=== PATIENT | male | born 1975 | race Caucasian/White ===

== ENCOUNTER 2016-08-27 12:57 | Emergency (ER) | payer OTHER ==
[~2016-08-27] VITALS: Ht 172.7 cm; Wt 57.1 kg
[~2016-08-27 12:57] MED LIST: ABILIFY2 MG PO; ASPIR-LOW81 MG PO; AVENTYL,PAMELOR10 MG PO; DEPAKOTE500 MG PO; DOXYCYCLINE HY100 MG PO; HYCODAN SYRUP480 ML PO; MOTRIN600 MG PO; MOTRIN800 MG PO; NORCO 5/3251 TABLET PO; TESSALON PERLE100 MG PO; TYLENOL WITH C1 EACH PO; ULTRAM50 MG PO; VALIUM5 MG PO; ZITHROMAX Z-PA250 MG PO; ZITHROMAX500 MG PO
[2016-08-27 13:21] VITALS: BP 132/86
[2016-08-27] MEDS ORDERED: BENADRYL50 MG PO (14:27)
[2016-08-27] MEDS ORDERED: ACYCLOVIR800 MG PO (14:27)
== END 2016-08-27 15:30 | disposition home or self-care (01) ==
LOC: EME 12:57
DX: B02.9 Zoster without complications (principal); Z88.0 Allergy status to penicillin; Z88.8 Allergy status to other drugs, medicaments and biological substances
CPT/HCPCS: 99281; 99283

== ENCOUNTER 2016-11-01 03:34 | Emergency (ER) | payer SELFPAY ==
[~2016-11-01] VITALS: Ht 172.7 cm; Wt 56.6 kg
[~2016-11-01 03:34] MED LIST changes: +ACYCLOVIR800 MG PO; +BENADRYL50 MG PO
[2016-11-01 06:30] VITALS: BP 130/98
== END 2016-11-01 06:40 | disposition home or self-care (01) ==
LOC: EME 03:34
DX: T65.91XA Toxic effect of unspecified substance, accidental (unintentional), initial encounter (principal); T23.571A Corrosion of first degree of right wrist, initial encounter; S05.01XA Injury of conjunctiva and corneal abrasion without foreign body, right eye, initial encounter
CPT/HCPCS: 99281; 99283

== ENCOUNTER 2017-01-12 14:28 | Emergency (ER) | payer SELFPAY ==
[~2017-01-12] VITALS: Ht 172.7 cm; Wt 60.7 kg
[2017-01-12] MEDS ORDERED: NAPROSYN500 MG PO (15:26)
[2017-01-12 15:39] LABS: INFLUENZA A VIRAL ANTIGEN NEGATIVE; INFLUENZA B VIRAL ANTIGEN NEGATIVE
[2017-01-12 15:52] VITALS: BP 121/76
== END 2017-01-12 15:52 | disposition home or self-care (01) ==
LOC: EME 14:28
PROVIDERS: Nurse Practitioner Family
DX: B34.9 Viral infection, unspecified (principal); J02.9 Acute pharyngitis, unspecified; R09.81 Nasal congestion; R05 Cough; R19.7 Diarrhea, unspecified
CPT/HCPCS: 71020; 87502; 99281; 99284

== ENCOUNTER 2017-02-28 15:36 | Emergency (ER) | payer SELFPAY ==
[~2017-02-28] VITALS: Ht 172.7 cm; Wt 61.1 kg
[~2017-02-28 15:36] MED LIST changes: +NAPROSYN500 MG PO
[2017-02-28 18:02] VITALS: BP 125/94
== END 2017-02-28 18:13 | disposition home or self-care (01) ==
LOC: EME 15:36
DX: B34.9 Viral infection, unspecified (principal); R19.7 Diarrhea, unspecified; R05 Cough; R56.9 Unspecified convulsions; Z88.0 Allergy status to penicillin; Z88.8 Allergy status to other drugs, medicaments and biological substances
CPT/HCPCS: 99281; 99284

== ENCOUNTER 2017-08-31 22:39 | Emergency (ER) | payer OTHER ==
[~2017-08-31] VITALS: Ht 172.7 cm; Wt 64.2 kg
[2017-08-31 23:32] LABS: HEMATOCRIT 41.5 % (38.0-50.0); HEMOGLOBIN 14.6 G/DL (12.5-16.6); MCH 30.5 PG (29.0-34.0); MCHC 35.2 G/DL (30.0-36.0); MCV 86.8 FL (86-99); PLATELET COUNT 226 K/uL (156-360); RBC DIS.WIDTH-CV 12.3 % (11.8-14.6); RBC DIS.WIDTH-SD 39.1 % (39-53); RED BLOOD COUNT 4.78 M/uL (4.00-5.50); WHITE BLOOD COUNT 11.4 K/uL (4.1-10.2)
[2017-08-31 23:46] LABS: ALBUMIN 4.3 g/dL (3.2-4.8); CHLORIDE 102 mEq/L (99-109); POTASSIUM 4.2 mEq/L (3.7-5.4); SODIUM 140 mEq/L (136-147)
[2017-08-31 23:48] LABS: GLUCOSE 92 mg/dL (70-99)
[2017-08-31 23:50] LABS: TOTAL BILIRUBIN 0.5 mg/dL (0.0-1.0)
[2017-08-31 23:52] LABS: ALKALINE PHOSPHATASE 146 IU/L (3-129); GFR ESTIMATE (CALCULATED) > 59 mL/min/ (58.99-99999)
[2017-08-31 23:53] LABS: UREA NITROGEN (BUN) 8 mg/dL (9-23)
[2017-08-31 23:54] LABS: AST (GOT) 51 IU/L (2-34)
[2017-08-31 23:55] LABS: ALT (GPT) 42 IU/L (3-49)
[2017-09-01] MEDS ORDERED: DEPAKOTE500 MG PO (01:07)
[2017-09-01 01:44] VITALS: BP 113/83
== END 2017-09-01 01:49 | disposition home or self-care (01) ==
LOC: EME 22:39
DX: H53.8 Other visual disturbances (principal); R51 Headache; G40.909 Epilepsy, unspecified, not intractable, without status epilepticus; I10 Essential (primary) hypertension; Z88.0 Allergy status to penicillin
CPT/HCPCS: 70450; 71046; 80053; 81003; 85027; 93005; 99281; 99284

== ENCOUNTER 2017-09-26 22:20 | Emergency (ER) | payer OTHER ==
[~2017-09-26] VITALS: Ht 175.3 cm; Wt 63.2 kg
[2017-09-27] MEDS ORDERED: NAPROSYN500 MG PO (01:17)
[2017-09-27 01:43] VITALS: BP 145/91
== END 2017-09-27 01:44 | disposition home or self-care (01) ==
LOC: EME 22:20
DX: S83.005A Unspecified dislocation of left patella, initial encounter (principal); W50.0XXA Accidental hit or strike by another person, initial encounter; M76.52 Patellar tendinitis, left knee
CPT/HCPCS: 73564; 99281; 99284

== ENCOUNTER 2017-10-16 11:52 | Emergency (ER) | payer OTHER ==
[~2017-10-16] VITALS: Ht 175.3 cm; Wt 61.3 kg
[2017-10-16 14:55] VITALS: BP 126/85
== END 2017-10-16 14:55 | disposition home or self-care (01) ==
LOC: EME 11:52
DX: M25.562 Pain in left knee (principal); V49.40XA Driver injured in collision with unspecified motor vehicles in traffic accident, initial encounter; Y92.410 Unspecified street and highway as the place of occurrence of the external cause; Z88.0 Allergy status to penicillin
CPT/HCPCS: 73564; 99281; 99284